=== PATIENT | female | born 1935 | race Caucasian/White ===

== ENCOUNTER → 2018-04-04 | Outpatient (CLI) | payer MEDICARE, OTHER ==
[~2018-04-04] MED LIST: CELE100; HYDACE10B PO; META800 PO; METH5; MULVITA
[2018-04-04 20:03] LABS: BASOPHILS ABSOLUTE AUTO 0.05 K/mm3 (0.00-0.23); BASOPHILS PERCENT AUTO 1 % (0-2); EOSINOPHILS ABSOLUTE AUTO 0.15 K/mm3 (0.00-0.68); EOSINOPHILS PERCENT AUTO 3 % (0-6); Hematocrit 40.1 % (33.0-51.0); Hemoglobin 13.1 g/dL (11.5-16.0); IMMATURE GRAN ABSOLUTE AUTO 0.01 K/mm3 (0.00-0.10); IMMATURE GRAN PERCENT AUTO 0 % (0-1); LYMPHOCYTES ABSOLUTE AUTO 1.63 K/mm3 (0.84-5.20); LYMPHOCYTES PERCENT AUTO 29 % (21-46); MONOCYTES ABSOLUTE AUTO 0.59 K/mm3 (0.16-1.47); MONOCYTES PERCENT AUTO 11 % (4-13); Mean Corpuscular HGB Conc 32.7 g/dL (31.5-36.5); Mean Corpuscular Volume 92 fL (80-100); Mean Platelet Volume 10.9 fL (9.1-12.4); NEUTROPHILS PERCENT AUTO 57 % (41-73); Platelet Count 202 K/mm3 (150-400); RDW Coefficient Variation 12.4 % (11.7-14.2); RDW Standard Deviation 42.3 fL (35.1-46.3); Red Blood Cell Count 4.36 M/mm3 (3.80-5.20); White Blood Cell Count 5.63 K/mm3 (4.00-11.30)
[2018-04-04 20:09] LABS: Alanine Aminotransfer (ALT/SGP 22 U/L (12-78); Albumin/Globulin Ratio 1.4 (0.8-1.8); Alk Phos 75 U/L (50-136); Anion Gap 7 mmol/L (6-16); Aspartate Aminotrans (AST/SGOT 18 U/L (12-37); Bilirubin, Total 0.6 mg/dL (0.1-1.0); Blood Urea Nitrogen 17 mg/dL (8-24); Bun/Creatinine Ratio 26.4 (12.0-20.0); CO2, Blood 29 mmol/L (21-32); Calcium, Blood 9.2 mg/dL (8.5-10.1); Chloride, Blood 103 mmol/L (98-108); Creatinine, Blood 0.65 mg/dL (0.40-1.00); Globulin, Blood 2.9 g/dL (2.2-4.0); Glomerular Filtration Rate >60 (60-); Glucose, Blood 87 mg/dL (70-99); Potassium, Blood 3.8 mmol/L (3.5-5.5); Sodium, Blood 139 mmol/L (136-145); Total Protein, Blood 6.9 g/dL (6.4-8.2)
== END ==
LOC: LAB 19:00 → LAB SHORT 19:00
PROVIDERS: Nurse Practitioner
DX: R11.0 Nausea (principal)
CPT/HCPCS: 80053; 85025

== ENCOUNTER → 2019-03-19 | Outpatient (CLI) | payer MEDICARE, OTHER | END | disposition home or self-care (01) | LOC: LAB 16:57 → LAB SHORT 16:57 | DX: L29.8 Other pruritus (principal) | CPT/HCPCS: 87070; 87205 ==

== ENCOUNTER 2021-04-04 11:05 | Emergency (ER) | payer MEDICARE, OTHER ==
[~2021-04-04] VITALS: Ht 162.6 cm; Wt 63.5 kg
[2021-04-04] MEDS ORDERED: BENZ100A PO (11:53)
== END 2021-04-04 11:58 | disposition home or self-care (01) ==
LOC: ER 11:05
DX: R05 Cough (principal); J44.9 Chronic obstructive pulmonary disease, unspecified; Z91.041 Radiographic dye allergy status; Z88.5 Allergy status to narcotic agent; Z88.1 Allergy status to other antibiotic agents; Z87.891 Personal history of nicotine dependence
CPT/HCPCS: 99284

== ENCOUNTER → 2022-07-18 | Outpatient (CLI) | payer MEDICARE, OTHER ==
[~2022-07-18] MED LIST changes: +BENZ100A PO
== END | disposition home or self-care (01) ==
LOC: LAB SHORT 08:01 → LAB 08:01
DX: C44.42 Squamous cell carcinoma of skin of scalp and neck (principal)
CPT/HCPCS: 88305

== ENCOUNTER 2023-08-22 15:08 | Emergency (ER) | payer MEDICARE, OTHER ==
[~2023-08-22] VITALS: Ht 162.6 cm; Wt 62.6 kg
[2023-08-22 15:15] VITALS: BP 154/83
[2023-08-22 15:44] LABS: BASOPHILS ABSOLUTE AUTO 0.04 K/mm3 (0.00-0.23); BASOPHILS PERCENT AUTO 1 % (0-2); EOSINOPHILS ABSOLUTE AUTO 0.07 K/mm3 (0.00-0.68); EOSINOPHILS PERCENT AUTO 1 % (0-6); Hematocrit 41.2 % (33.0-51.0); Hemoglobin 13.7 g/dL (11.5-16.0); IMMATURE GRAN ABSOLUTE AUTO 0.02 K/mm3 (0.00-0.10); IMMATURE GRAN PERCENT AUTO 0 % (0-1); LYMPHOCYTES ABSOLUTE AUTO 2.82 K/mm3 (0.84-5.20); LYMPHOCYTES PERCENT AUTO 35 % (21-46); MONOCYTES ABSOLUTE AUTO 0.47 K/mm3 (0.16-1.47); MONOCYTES PERCENT AUTO 6 % (4-13); Mean Corpuscular HGB 30.2 pg (26.0-34.0); Mean Corpuscular HGB Conc 33.3 g/dL (31.5-36.5); Mean Corpuscular Volume 91 fL (80-100); Mean Platelet Volume 10.2 fL (9.1-12.4); NEUTROPHILS ABSOLUTE AUTO 4.67 K/mm3 (1.96-9.15); NEUTROPHILS PERCENT AUTO 58 % (41-73); Platelet Count 205 K/mm3 (150-400); RDW Standard Deviation 42.8 fL (35.1-46.3); Red Blood Cell Count 4.53 M/mm3 (3.80-5.20); White Blood Cell Count 8.09 K/mm3 (4.00-11.30)
[2023-08-22 16:14] LABS: Albumin/Globulin Ratio 1.2 (0.8-1.8); Bilirubin, Total 0.8 mg/dL (0.1-1.0); Bun/Creatinine Ratio 24.5 (12.0-20.0); Calcium, Blood 9.1 mg/dL (8.5-10.1); Creatinine, Blood 0.53 mg/dL (0.40-1.00); Globulin, Blood 3.3 g/dL (2.2-4.0); Total Protein, Blood 7.3 g/dL (6.4-8.2)
== END 2023-08-22 16:23 | disposition left against medical advice (07) ==
LOC: ER 15:08
PROVIDERS: Physician Assistant
DX: R42 Dizziness and giddiness (principal); Z53.21 Procedure and treatment not carried out due to patient leaving prior to being seen by health care provider
CPT/HCPCS: 71046; 80053; 83690; 84484; 85025; 93005; 93010

== ENCOUNTER → 2023-08-22 | Outpatient (CLI) | payer MEDICARE, OTHER ==
[2023-08-22 16:42] LABS: BASOPHILS ABSOLUTE AUTO 0.06 K/mm3 (0.00-0.23); BASOPHILS PERCENT AUTO 1 % (0-2); EOSINOPHILS ABSOLUTE AUTO 0.09 K/mm3 (0.00-0.68); EOSINOPHILS PERCENT AUTO 1 % (0-6); Hemoglobin 13.4 g/dL (11.5-16.0); IMMATURE GRAN ABSOLUTE AUTO 0.01 K/mm3 (0.00-0.10); IMMATURE GRAN PERCENT AUTO 0 % (0-1); LYMPHOCYTES ABSOLUTE AUTO 2.54 K/mm3 (0.84-5.20); LYMPHOCYTES PERCENT AUTO 32 % (21-46); MONOCYTES ABSOLUTE AUTO 0.48 K/mm3 (0.16-1.47); MONOCYTES PERCENT AUTO 6 % (4-13); Mean Corpuscular HGB 30.4 pg (26.0-34.0); Mean Corpuscular HGB Conc 33.5 g/dL (31.5-36.5); Mean Corpuscular Volume 91 fL (80-100); Mean Platelet Volume 10.6 fL (9.1-12.4); NEUTROPHILS ABSOLUTE AUTO 4.76 K/mm3 (1.96-9.15); NEUTROPHILS PERCENT AUTO 60 % (41-73); Platelet Count 219 K/mm3 (150-400); RDW Standard Deviation 42.8 fL (35.1-46.3); Red Blood Cell Count 4.41 M/mm3 (3.80-5.20); White Blood Cell Count 7.94 K/mm3 (4.00-11.30)
[2023-08-22 17:24] LABS: Albumin, Blood 3.9 g/dL (3.4-5.0); Albumin/Globulin Ratio 1.3 (0.8-1.8); Bilirubin, Total 0.7 mg/dL (0.1-1.0); Calcium, Blood 9.2 mg/dL (8.5-10.1); Creatinine, Blood 0.6 mg/dL (0.40-1.00); Globulin, Blood 3.1 g/dL (2.2-4.0); Potassium, Blood 4.2 mmol/L (3.5-5.5); Thyroid Stimulating Hormone 2.8 uIU/mL (0.360-4.800)
== END ==
LOC: LAB SHORT 15:12 → LAB 15:12
PROVIDERS: Family Medicine
DX: R55 Syncope and collapse (principal); R42 Dizziness and giddiness; R53.83 Other fatigue
CPT/HCPCS: 80053; 84443; 84484; 85025

== ENCOUNTER 2023-08-24 12:10 | Emergency (ER) | payer MEDICARE, OTHER ==
[~2023-08-24] VITALS: Ht 162.6 cm; Wt 62.6 kg
[2023-08-24 13:48] LABS: BASOPHILS ABSOLUTE AUTO 0.05 K/mm3 (0.00-0.23); BASOPHILS PERCENT AUTO 1 % (0-2); EOSINOPHILS PERCENT AUTO 1 % (0-6); Hemoglobin 12.7 g/dL (11.5-16.0); IMMATURE GRAN ABSOLUTE AUTO 0.01 K/mm3 (0.00-0.10); IMMATURE GRAN PERCENT AUTO 0 % (0-1); LYMPHOCYTES ABSOLUTE AUTO 2.54 K/mm3 (0.84-5.20); LYMPHOCYTES PERCENT AUTO 35 % (21-46); MONOCYTES ABSOLUTE AUTO 0.56 K/mm3 (0.16-1.47); MONOCYTES PERCENT AUTO 8 % (4-13); Mean Corpuscular HGB 30.2 pg (26.0-34.0); Mean Corpuscular HGB Conc 32.6 g/dL (31.5-36.5); Mean Corpuscular Volume 93 fL (80-100); Mean Platelet Volume 10.9 fL (9.1-12.4); NEUTROPHILS ABSOLUTE AUTO 4.09 K/mm3 (1.96-9.15); NEUTROPHILS PERCENT AUTO 56 % (41-73); Platelet Count 204 K/mm3 (150-400); RDW Coefficient Variation 13.2 % (11.7-14.2); RDW Standard Deviation 44.2 fL (35.1-46.3); White Blood Cell Count 7.35 K/mm3 (4.00-11.30)
[2023-08-24 14:04] LABS: Bun/Creatinine Ratio 36.8 (12.0-20.0); Calcium, Blood 9.3 mg/dL (8.5-10.1); Creatinine, Blood 0.57 mg/dL (0.40-1.00); Potassium, Blood 4.6 mmol/L (3.5-5.5)
[2023-08-24 16:00] VITALS: BP 127/63
== END 2023-08-24 16:31 | disposition home or self-care (01) ==
LOC: ER 12:10
PROVIDERS: Student in an Organized Health Care Education/Training Program
DX: R42 Dizziness and giddiness (principal); R94.31 Abnormal electrocardiogram [ECG] [EKG]; J44.9 Chronic obstructive pulmonary disease, unspecified; Z91.041 Radiographic dye allergy status; Z88.5 Allergy status to narcotic agent; Z88.1 Allergy status to other antibiotic agents; Z79.899 Other long term (current) drug therapy; Z87.891 Personal history of nicotine dependence
CPT/HCPCS: 80048; 83880; 84484; 85025; 93005; 93010; 99284-25